=== PATIENT | female | born 1955 | race Two or more races ===

== ENCOUNTER 2019-01-13 20:02 | Emergency (ER) | payer OTHER ==
[~2019-01-13] VITALS: Ht 160 cm; Wt 56.7 kg
[~2019-01-13 20:02] MED LIST: ADVAIR 100-501 EACH IH; AMBIEN10 MG; AMBIEN10 MG PO; BACLOFEN10 MG PO; BUTALBITAL-APAP1 TA1 PO; CATAFLAM50 MG PO; DICLOFENAC POTA50 MG PO; DOLOGESIC 500-1 EACH; DOXYCYCLINE HY100 M2 PO; DURAGESIC50 MCG/HR TD; FAMOTIDINE20 MG PO; FIORICET 50-301 EACH PO; FLONASE ALLERG9.9 ML NS; FOLIC ACID1 MG PO; GABAPENTIN800 MG PO; INTESTINEX1 CA1 PO; INTESTINEX680 MG PO; LOPRESSOR HCT 51 TAB PO; LoPRESSOR 50MG TAB PO; METOPROLOL SUC100 MG PO; METOPROLOL SUCC50 MG; NEURONTIN PO; NEURONTIN800 MG; NORFLEX100MG PO; Neurin-Sl Tablet Sl SL; PEPCID20 MG; PROTONIX20 MG; PROTONIX40 MG PO; PYRIDOXINE HCL100 MG PO; SULFAMETHOXAZOL1 TA4 PO; TRAM1TAB98 PO; ULTRACET; ZANTAC300 MG PO; ZOLPIDEM TARTRA10 MG PO; [UNRECOGNIZED DRUG - OTHER]
== END 2019-01-14 13:53 | disposition home or self-care (01) ==
LOC: ER 20:02
DX: I87.2 Venous insufficiency (chronic) (peripheral) (principal); M79.604 Pain in right leg; N39.0 Urinary tract infection, site not specified; Z89.612 Acquired absence of left leg above knee

== ENCOUNTER 2019-01-16 18:45 | Inpatient (IN) | payer OTHER ==
[~2019-01-16] VITALS: Ht 160 cm; Wt 56.7 kg
[2019-01-28] MEDS ORDERED: FLONASE16 GM NASAL (19:29)
[2019-01-28] MEDS ORDERED: CLOTRIMAZOLE VAG (19:29)
[2019-01-28] MEDS ORDERED: HYDROCHLOROTH12.5 M1 PO (19:29)
[2019-01-28] MEDS ORDERED: NAPR500T14 PO (19:29)
[2019-01-28] MEDS ORDERED: BACLOFEN10 MG PO (19:29)
[2019-01-28] MEDS ORDERED: BUTALB-ACETAMI1 EAC2 PO (19:29)
[2019-01-28] MEDS ORDERED: IRBESARTAN75 MG PO (19:29)
[2019-01-28] MEDS ORDERED: FAMOTIDINE20 MG PO (19:29)
[2019-01-28] MEDS ORDERED: XOPENEX0.63 MG/3 IH (19:29)
[2019-01-28] MEDS ORDERED: ULTRACET PO (19:29)
[2019-01-28] MEDS ORDERED: Intestinex CAP PO (19:29)
[2019-01-28] MEDS ORDERED: METOPROLOL SUCC50 MG PO (19:29)
[2019-01-28] MEDS ORDERED: NEURONTIN800 MG PO (19:29)
[2019-01-28] MEDS ORDERED: Pulmicort 0.5 MG/2 M IH (19:29)
== END 2019-01-28 21:00 | disposition home or self-care (01) | DRG 603 ==
LOC: ER 18:45 → SURG 21:56 → SEC-K 21:56 → SURG 22:13
PROVIDERS: ADMIT Internal Medicine Geriatric Medicine
PROC: 3E0F7GC Introduction of Other Therapeutic Substance into Respiratory Tract, Via Natural or Artificial Opening (ICD-10-PCS; principal; 2019-01-16)
PROC: CW1NLZZ Planar Nuclear Medicine Imaging of Whole Body using Gallium 67 (Ga-67) (ICD-10-PCS; 2019-01-17)
PROC: 05HM33Z Insertion of Infusion Device into Right Internal Jugular Vein, Percutaneous Approach (ICD-10-PCS; 2019-01-20)
PROC: 02HV33Z Insertion of Infusion Device into Superior Vena Cava, Percutaneous Approach (ICD-10-PCS; 2019-01-20)
PROC: 4A033R1 Measurement of Arterial Saturation, Peripheral, Percutaneous Approach (ICD-10-PCS; 2019-01-23)
PROC: 4A12X4Z Monitoring of Cardiac Electrical Activity, External Approach (ICD-10-PCS; 2019-01-24)
PROC: 02H633Z Insertion of Infusion Device into Right Atrium, Percutaneous Approach (ICD-10-PCS; 2019-01-24)
PROC: B54BZZZ Ultrasonography of Right Lower Extremity Veins (ICD-10-PCS; 2019-01-25)
PROC: BB24ZZZ Computerized Tomography (CT Scan) of Bilateral Lungs (ICD-10-PCS; 2019-01-25)
DX: L03.115 Cellulitis of right lower limb (principal); N39.0 Urinary tract infection, site not specified; J98.11 Atelectasis; E87.2 Acidosis; J45.40 Moderate persistent asthma, uncomplicated; Z89.612 Acquired absence of left leg above knee; I10 Essential (primary) hypertension; J44.9 Chronic obstructive pulmonary disease, unspecified; R09.02 Hypoxemia; G43.709 Chronic migraine without aura, not intractable, without status migrainosus

== ENCOUNTER → 2021-04-06 | Emergency (ER) | payer OTHER ==
[~2021-04-06] VITALS: Ht 160 cm; Wt 62.1 kg
[~2021-04-06] MED LIST changes: +BUTALB-ACETAMI1 EAC2 PO; +CLONAZEPAM0.5 MG PO; +CLOTRIMAZOLE VAG; +FLONASE16 GM NASAL; +HYDROCHLOROTH12.5 M1 PO; +IMODIUM A-D2 MG PO; +IRBESARTAN75 MG PO; +Intestinex CAP PO; +LEXAPRO5 MG PO; +LOPRESSOR HCT1 EACH PO; +METOPROLOL SUCC50 MG PO; +NAPR500T14 PO; +NEURONTIN800 MG PO; +PHENERGAN50 MG/1 ML IM; +PHENOBARBI20 MG/5 M1; +Pulmicort 0.5 MG/2 M IH; +RESTORIL15 MG PO; +TRAZODONE HCL150 MG PO; +ULTRACET PO; +XOPENEX0.63 MG/3 IH
== END | disposition designated cancer center or children's hospital (05) ==
LOC: ER 14:20
DX: J44.1 Chronic obstructive pulmonary disease with (acute) exacerbation (principal); F32.89 Other specified depressive episodes; F15.20 Other stimulant dependence, uncomplicated; Z03.818 Encounter for observation for suspected exposure to other biological agents ruled out; Z99.81 Dependence on supplemental oxygen